=== PATIENT | female | born 1925 | race Caucasian/White ===

== ENCOUNTER 2016-12-16 12:34 | Observation (INO) | payer OTHER ==
--- NOTE | ~2016-12-16 | EKG ---
PATIENT: MARLON VALENZUELA UNIT #: [id number] Ventricular Rate: 59 BPM Atrial Rate: 59 BPM P-R Interval: 142 ms QRS Duration: 96 ms Q-T Interval: 398 ms QTC Calculation(Bezet): 394 ms P [place]: 99 degrees Calculated R [place]: -49 degrees Calculated T [place]: 51 degrees Diagnosis Line: Sinus bradycardia with sinus arrhythmia Diagnosis Line: Left anterior fascicular block Diagnosis Line: Moderate voltage criteria for LVH, may be normal Diagnosis Line: variant Diagnosis Line: Possible Lateral infarct , age undetermined Diagnosis Line: Abnormal ECG Diagnosis Line: When compared with ECG of 17-DEC-2016 10:14, Diagnosis Line: (unconfirmed) Diagnosis Line: No significant change was found Diagnosis Line: Confirmed by FAWN PERKINS MD ([id number]) on 12/19/2016 Diagnosis Line: 7:28:55 PM INTERPRETING MD: MADDIE PAIGE
--- NOTE | ~2016-12-16 | EKG ---
PATIENT: MARLON VALENZUELA UNIT #: [id number] Ventricular Rate: 144 BPM Atrial Rate: 288 BPM QRS Duration: 90 ms Q-T Interval: 244 ms QTC Calculation(Bezet): 377 ms P [place]: 254 degrees Calculated R [place]: -60 degrees Calculated T [place]: 122 degrees Diagnosis Line: Atrial flutter with 2:1 A-V conduction Diagnosis Line: Pulmonary disease pattern Diagnosis Line: Left anterior fascicular block Diagnosis Line: Left ventricular hypertrophy with repolarization Diagnosis Line: abnormality Diagnosis Line: Abnormal ECG Diagnosis Line: When compared with ECG of 18-MAY-2011 10:14, Diagnosis Line: Significant changes have occurred Diagnosis Line: Confirmed by FAWN PERKINS MD ([id number]) on 12/19/2016 Diagnosis Line: 7:17:26 PM INTERPRETING MD: MADDIE PAIGE
--- NOTE | ~2016-12-16 | HP ---
Unit #: [id number] #: [id number] Patient: MARLON VALENZUELA [id number] [address] [place], [place] [address] [id number] I MR#: [id number] NAME: MARLON VALENZUELA. ROOM: 329 Age: 89 Sex: F Admission Date: 12/16/2016 : 1925 Attending Physician: Atilio Herndon M.D. Primary Care Physician: Jarred Lay M.D. HISTORY AND PHYSICAL CHIEF COMPLAINT Diarrhea. HISTORY OF PRESENT ILLNESS The patient is an 89-year-old female with the history of coronary artery disease and congestive heart failure with a diastolic dysfunction, hypertension, hypothyroidism and GERD, brought to the emergency room complaining of the diarrhea. The patient stated the patient noticed diarrhea since , three times a day. However the diarrhea continued to worsen until today and the patient noticed black-colored stool this morning and that made her come to the emergency room. The patient was found to be guaiac positive in the emergency room and was found to be hypotensive with a blood pressure in the range of 88/42. The patient is being admitted for the above reasons. The patient's hemoglobin is 13.9. The patient denies any new recent antibiotics, dizziness, chest pain, palpitation, shortness of breath. PAST MEDICAL HISTORY History of coronary artery disease, congestive heart failure with the chronic diastolic dysfunction, hypertension, hypothyroidism and GERD. PAST SURGICAL HISTORY History of an ileostomy, status post subtotal colectomy with the Bella pouch. ALLERGIES No known drug allergies. HOME MEDICATIONS She is on levothyroxine, Norvasc, potassium, Lasix, pravastatin, multivitamins, iron tablet, aspirin, calcium and Claritin and Xanax. SOCIAL HISTORY Denies history of tobacco, alcohol or any illicit drug abuse. FAMILY HISTORY Reviewed and none. REVIEW OF SYMPTOMS Fourteen-point review of symptoms performed and only pertinent positive findings as described above, remaining are negative. PHYSICAL EXAMINATION Unit #: [id number] #: [id number] Patient: MARLON VALENZUELA GENERAL APPEARANCE: On examination the patient is sitting on a hair not in acute distress. VITAL SIGNS: Temperature 97.8, pulse 92, blood pressure 88/42, respiratory rate 18, sating 100% at room air. HEENT: Head atraumatic, normocephalic. Pupils equal, round and reacting to light and accommodation. Extraocular movements are intact. Dry mucous membranes. NECK: Supple. LUNGS: Clear to auscultation bilaterally. No rhonchi. No wheezing. HEART: Regular rate and rhythm. ABDOMEN: Soft, positive bowel sounds. EXTREMITIES: No cyanosis. No clubbing. NEUROLOGIC: Alert, awake, oriented. No gross focal motor deficit. DIAGNOSTIC STUDIES LABORATORY DATA: Glucose 119, BUN 27, creatinine 1.6, sodium 128, potassium 4.1, chloride 96, bicarb 20, calcium 8.5, total protein 7.1, albumin 3.9, AST 130, ALT 159, alkaline phosphatase 109 and INR is 1, WBC 10.6, hemoglobin 13.9, hemoglobin 40.7, platelets 387. CARDIOVASCULAR: EKG is not done. ASSESSMENT 1. Gastrointestinal bleed likely secondary to the upper gastrointestinal bleed. 2. Acute kidney injury. 3. Hyponatremia. PLAN 1. Plan to admit the patient to the observation. 2. Continue with the IV fluid 75 mL per hour for 10 more hours and then continue with the Protonix 40 mg IV b.i.d. 3. Will have GI for the upper endoscopy. 4. Repeat the labs again in the morning. 5. Will hold the aspirin and iron tablets. 6. Further recommendations will follow. Dictated by Shane Okeefe/joel TD: 12/16/2016 20:19 JOB #: [id number] Unit #: [id number] #: [id number] Patient: NICOLASMARLON Ferro HISTORY AND PHYSICAL X X HISTORY AND PHYSICAL
--- NOTE | ~2016-12-16 | CO ---
Unit #: [id number] #: [id number] Patient: MARLON VALENZUELA [id number] [facility] [address]. [place], [place] [address] [id number] I MR#: [id number] NAME: MARLON VALENZUELA. ROOM: 329 Age: 89 Sex: F Admission Date: 12/16/2016 : 1925 Attending Physician: Oh Kaur M.D. Primary Care Physician: Jarred Lay M.D. Consultation Date: 12/17/2016 CONSULTATION REPORT REASON FOR CONSULTATION Atrial flutter. HISTORY OF PRESENT ILLNESS The patient is an 89-year-old female who follows with Dr. Romero of [facility]. The patient has been seen at [facility] before in [address] Ana Brooke. Patient reports that she had a cardiac catheterization in 2005 at [facility]. Her LAD had 50% stenosis and she had some luminal irregularities to the circumflex and RCA. In 2005 she had an echo done that showed diastolic dysfunction with an EF of 55%. Additional past medical history incudes hypertension, hyperlipidemia, GERD, hypothyroidism, bladder cancer in 2008 and she is a nonsmoker. The patient reports that she has been having diarrhea since last . She denied any nausea, vomiting, fever, chills, chest pain or shortness of air. However, yesterday the patient noticed that her diarrhea seemed to turn "black." Again patient denied any other change in her symptoms. She denied any sick contacts. In the emergency department she was found to be heme positive. Her blood pressure was 88/42. The patient's hemoglobin upon admission was 13.9. Last night patient went into atrial flutter with a 2:1 conduction. The patient was sleeping at this time. She denied any nausea, vomiting, fever, chills, chest pain, shortness of air or dizziness. The hospitalist team was called and the patient did receive 10 mg of IV Cardizem per push and the patient converted back into sinus rhythm. Cardiology has been consulted for the atrial flutter. PAST MEDICAL HISTORY 1. Cardiac cath in 2015, 50% stenosis in the LAD and luminal irregularities in circumflex and RCA. 2. Echo 2016 shows EF of 55%. 3. Diastolic CHF. 4. Hypertension. 5. Hypothyroidism. 6. GERD. 7. Blader cancer in 2009. PAST SURGICAL HISTORY 1. Ileostomy. 2. Hysterectomy. 3. Subtotal colectomy with Bella pouch. Unit #: [id number] #: [id number] Patient: MARLON VALENZUELA ALLERGIES No known allergies. HOME MEDICATIONS 1. Levothyroxine 88 mcg p.o. daily. 2. Amlodipine and benazepril 5/10 mg one tab p.o. daily. 3. Potassium chloride 10 mEq p.o. daily. 4. Lasix 40 mg p.o. daily. 5. Pravastatin 20 mg p.o. q.h.s. 6. Multivitamin one tablet p.o. daily. 7. Iron supplement 65 mg p.o. daily. 8. Aspirin 81 mg p.o. daily. 9. Calcium plus vitamin D one tablet p.o. daily. 10. Claritin 10 mg p.o. daily. 11. Xanax 0.25 mg p.o. b.i.d. p.r.n. FAMILY HISTORY Patient endorses that her father had a CVA and that her mother had heart issues but is unable to give details. SOCIAL HISTORY The patient is a nonsmoker. She does not drink alcohol or use any illicit street substances. REVIEW OF SYSTEMS CONSTITUTIONAL: Denies fever or chills. HEENT: Denies sore throat, ear pain or runny nose. CARDIOVASCULAR: Denies chest pain, irregular heart rhythm or palpitations. CHEST: Denies shortness of breath or cough. No hemoptysis. GASTROINTESTINAL: Denies nausea, vomiting, chronic constipation. Endorses diarrhea and hematochezia. ENDOCRINE: Denies history of increased thirst or urination. No recent significant weight loss or gain. GENITOURINARY: Denies dysuria, frequency or hematuria. SKIN: Denies any rashes or lesions. HEMATOLOGIC: Denies any increase bleeding or bruising. MUSCULOSKELETAL: Denies any hot, swollen joints. No generalized muscle pain. NEUROLOGIC: Denies problems with speech or vision. No numbness, tingling or weakness in any extremity. Denies loss of bowel or bladder control. Denies dizziness. PHYSICAL EXAMINATION GENERAL: The patient is awake, alert, in no acute distress. VITAL SIGNS: Temperature 99, heart rate 120, respirations 18, blood pressure 125/63. She is 98%. HEENT: Head is atraumatic, normocephalic. Pupils equal, round, reactive. Extraocular movements are intact. No discharge from the ears or nares. NECK: Supple. Trachea is midline. Negative for JVD. Normal carotid upstrokes. CHEST: Lungs are clear to auscultation bilaterally. No wheezes, rales or rhonchi. CARDIVASCULAR: S1 and S2, regular rate and rhythm. No murmurs, gallops or rubs are appreciated. ABDOMEN: Abdomen is soft, nontender and nondistended. Bowel sounds are positive in all four quadrants. Unit #: [id number] #: [id number] Patient: MARLON VALENZUELA SKIN: Appears to be warm and dry, intact, without any unusual rashes or lesions. EXTREMITIES: No clubbing, edema or cyanosis. NEUROLOGIC: She is alert and oriented x4. She is pleasant and conversant. Cranial II through XII appear to be intact. DIAGNOSTIC STUDIES CARDIOVASCULAR: EKG from December 16, 2016 shows atrial flutter with 2:1 conduction. EKG from December 17 at 10:14 a.m. shows normal sinus rhythm. LABORATORY RESULTS: Whiter blood cells 10.6, hemoglobin 13.9, hematocrit 40.7, platelets 387, sodium 128, potassium 4.1, chloride 96, CO2 20, BUN 17, creatinine 1.6, glucose 119, INR is 0. ASSESSMENT 1. Acute lower gastrointestinal bleed with positive heme stool. 2. Paroxysmal atrial fibrillation/flutter, new onset. The patient has a CHADS-VASc score of 4. 3. Chronic diastolic congestive heart failure with an ejection fraction of 55% in 2005. 4. Hypertension. 5. Hyperlipidemia. 6. Gastroesophageal reflux disease. 7. Hypothyroidism. 8. Transaminitis. PLAN 1. Will attempt to obtain the cardiac catheterization technician report from [facility] from back in 2005. 2. Will trend the patient's cardiac enzymes and check a TSH. 3. Will check a BMP, mag, EKG in the morning. 4. Will plan to do a 2D echocardiogram. 5. The patient will be started on Lopressor 25 mg p.o. b.i.d. to hold for systolic blood pressure below 100 and heart rate below 55. 6. Will also add a lipid panel to the patient's labs and check an EKG in the morning. 7. The plan is for the patient to have a GI evaluation. 8. The patient will need anticoagulation once cleared by GI. Dictated by... Sarina Mitchell A.P.R.N. for Ana Brooke M.D. AM/cf TD: 12/17/2016 14:34 JOB #: [id number] Unit #: [id number] #: [id number] Patient: MARLON VALENZUELA CONSULTATION REPORT X Sarina Mitchell APRN X CONSULTATION REPORT
--- NOTE | ~2016-12-16 | DS ---
Unit #: [id number] #: [id number] Patient: MARLON VALENZUELA [id number] [place] [id number] [facility]. [place], [place] [address] [id number] I MR#: [id number] NAME: MARLON VALENZUELA. ROOM: 329 Age: 89 Sex: F Admission Date: 12/16/2016 : 1925 Discharge Date: 12/19/2016 Attending Physician: Jo Hodges M.D. Primary Care Physician: Jarred Lay M.D. DISCHARGE SUMMARY DIAGNOSIS ON ADMISSION GI bleeding. DIAGNOSES ON DISCHARGE 1. Gastrointestinal bleeding, resolved. 2. Acute kidney injury, improved. 3. Hyponatremia, improved. 4. Coronary artery disease. 5. Chronic diastolic heart dysfunction. 6. Hypothyroidism. 7. Hypertension. 8. Gastroesophageal reflux disease. 9. Paroxysmal atrial fibrillation. CONSULTATIONS 1. Dr. Presley in cardiac consultation. 2. Dr. Marie in GI consultation. PROCEDURES DONE The patient had an EGD done, which revealed small hiatal hernia with nonobstructing esophageal ring, mild gastritis. There was no clear source of bleeding present. DIAGNOSTIC STUDIES CARDIOVASCULAR: The patient had a two-D echocardiogram done, which revealed ejection fraction of 55%. There was mild aortic stenosis present and [id number] tricuspid regurgitation present. LABS: The patient's stool for C. diff. was negative. The patient's AST was 31, ALT 58. TSH was 3.86. The patient's creatinine was 1, sodium 138, potassium 3.9. WBC is 9.8, hemoglobin 10.7, platelet count 269. HOSPITAL COURSE This 89-year-old patient presented to [facility] with diarrhea and weakness. Details are as per admission H and P. Possible GI bleeding. The patient was seen by Dr. Marie in consultation. He performed EGD, which did not reveal any source of bleeding. Paroxysmal atrial fibrillation. The patient had atrial fibrillation, but she has converted to sinus rhythm. The patient was seen by cardiology in consultation who had started the patient on Eliquis if okay with cardiology. Unit #: [id number] #: [id number] Patient: MARLON VALENZUELA Diarrhea. The patient's stool for C. diff. was negative, and the patient stated that she had a formed BM. PHYSICAL EXAMINATION GENERAL: Today, the patient is comfortable and is not in any acute distress. Is very anxious to go home. VITAL SIGNS: Vital signs reveal temperature of 97.9, pulse 62 per minute, respiratory rate 16 per minute, and blood pressure is 131/59. HEENT: Examination revealed no conjunctival congestion. Sclera is nonicteric. NECK: Neck is supple. Trachea is central. RESPIRATORY: Examination revealed breath sounds equal bilaterally. There are no wheezes or crackles. HEART: Regular rate and rhythm. S1, S2. ABDOMEN: Abdomen is soft, nontender. Bowel sounds are present in all 4 quadrants. CONDITION Stable. ACTIVITIES As tolerated. DISCHARGE MEDICATIONS 1. Tylenol 650 mg p.o. q.6 hours p.r.n. 2. Eliquis 2.5 mg p.o. b.i.d. 3. Claritin 10 mg p.o. daily p.r.n. 4. Xanax 0.25 mg p.o. b.i.d. p.r.n., which is the patient's home medication. 5. Lopressor 25 mg p.o. b.i.d. as per cardiology. 6. Lasix as per cardiology. 7. Pravachol 20 mg p.o. daily. 8. Iron sulfate 65 mg p.o. daily. 9. Multivitamin 1 tablet p.o. daily. 10. Protonix 40 mg p.o. daily. 11. Calcium with vitamin D 500 mg p.o. daily. 12. Synthroid 88 mcg p.o. daily. 13. Potassium is as per cardiology. DISPOSITION The patient will be discharged home after seen by cardiology and GI. FOLLOW-UP The patient is advised to follow up with primary care physician in 1 week and have a CBC and BMP done. PLAN The plan was discussed in detail with the patient and daughter, and they showed complete understanding. They were advised to call primary care physician if her GI bleeding recurs or if she does not feel better or if her condition changes. They are also aware of the fact that Eliquis increases the risk of bleeding, and they need to monitor the patient closely. NOTE: Total time spent on this discharge is 35 minutes. Unit #: [id number] #: [id number] Patient: MARLON VALENZUELA Dictated by... Shane Hays TD: 12/19/2016 16:03 JOB #: [id number] DISCHARGE SUMMARY X Jo Hodges MD X DISCHARGE SUMMARY
--- NOTE | ~2016-12-16 | OR ---
Unit #: [id number] #: [id number] Patient: MARLON VALENZUELA [id number] [address] [address] [id number] I MR#: [id number] NAME: MARLON VALENZUELA. ROOM: [facility] Date of Procedure: 12/18/2016 Admission Date: 12/16/2016 Surgeon: Tio Marie M.D. : 1925 Attending Physician: Jo Hodges M.D. Primary Care Physician: Jarred Lay M.D. OPERATIVE REPORT PROCEDURE PERFORMED Esophagogastroduodenoscopy with biopsy. INDICATIONS FOR PROCEDURE The patient presented with melenic stools, undergoing evaluation with upper endoscopy. Hemoglobin stable. MEDICATIONS Monitored anesthesia. POSTOPERATIVE FINDINGS 1. Small hiatal hernia along with nonobstructing esophageal ring. 2. Mild gastritis. Biopsies taken. 3. Normal duodenum and distal duodenum. 4. No clear source or stigmata of recent bleeding was seen. PLAN Watch for any further bleeding. Watch H and H. DESCRIPTION OF PROCEDURE The patient was explained of the procedure, risks, and benefits along with risks and benefits of anesthesia. She was brought to the endoscopy room. Propofol anesthesia was given. Bite block was placed. The scope was passed down the mouth into the esophagus, stomach, duodenum, and distal duodenum. Findings as described. Biopsies taken. Gently, the scope was pulled out. She tolerated it well. Dictated by... Shane Odell/ana cristina TD: 12/18/2016 22:31 JOB #: [id number] Ana Brooke M.D. Unit #: [id number] #: [id number] Patient: MARLON VALENZUELA OPERATIVE REPORT X Tio Marie MD X PROCEDURE OPERATIVE NOTE
--- NOTE | ~2016-12-16 | EKG ---
PATIENT: MARLON VALENZUELA UNIT #: [id number] Ventricular Rate: 74 BPM Atrial Rate: 74 BPM P-R Interval: 140 ms QRS Duration: 96 ms Q-T Interval: 378 ms QTC Calculation(Bezet): 419 ms P [place]: 49 degrees Calculated R [place]: -53 degrees Calculated T [place]: 55 degrees Diagnosis Line: Normal sinus rhythm Diagnosis Line: Left anterior fascicular block Diagnosis Line: Voltage criteria for left ventricular hypertrophy Diagnosis Line: Abnormal ECG Diagnosis Line: When compared with ECG of 16-DEC-2016 23:58, Diagnosis Line: (unconfirmed) Diagnosis Line: Sinus rhythm has replaced Atrial flutter Diagnosis Line: Vent. rate has decreased BY 70 BPM Diagnosis Line: ST less depressed in Inferior leads Diagnosis Line: ST no longer depressed in Anterolateral leads Diagnosis Line: T wave inversion no longer evident in Lateral Diagnosis Line: leads Diagnosis Line: Confirmed by FAWN PERKINS MD ([id number]) on 12/19/2016 Diagnosis Line: 7:23:29 PM INTERPRETING MD: MADDIE PAIGE
[2016-12-16 11:08] LABS: BASOPHIL# 0.1 X10e3 (0-0.3); BASOPHIL% 0.6 % (0-2.5); EOSINOPHIL% 0.1 % (0.0-7.0); HEMATOCRIT 40.7 % (35.0-45.0); HEMOGLOBIN 13.9 gm/dL (12.0-16.0); LYMPHOCYTE# 2.3 X10e3 (1.0-3.5); LYMPHOCYTE% 21.7 % (17.0-45.0); MEAN CELL VOLUME 89.9 FL (83-96); MEAN CORPUSCULAR HEMOGLOBIN 30.7 PG (28-34); MEAN CORPUSCULAR HGB CONC 34.1 g/dL (30-36); MEAN PLATELET VOLUME 8.7 FL (6.5-11.5); MONOCYTE# 1.4 X10e3 (0-1.0); MONOCYTE% 12.9 % (3.0-12.0); NEUTROPHIL# 6.8 X10e3 (1.5-7.1); NEUTROPHIL% 64.7 % (40-75); PLATELET COUNT 387 X10e3 (140-420); RED BLOOD COUNT 4.53 X10e (3.90-5.30); RED CELL DISTRIBUTION WIDTH 12.6 % (11.0-15.5); WHITE BLOOD COUNT 10.6 X10e3 (4.0-10.5)
[2016-12-16 11:09] LABS: DIFF IND NO
[2016-12-16 11:24] LABS: PARTIAL THROMBOPLASTIN TIME 27.5 SECONDS (23.5-31.3)
[2016-12-16 11:36] LABS: ALBUMIN SERUM 3.9 g/dL (3.5-5.0); BILIRUBIN, DIRECT 0.1 mg/dL (0.0-0.2); BILIRUBIN,INDIRECT 0.7 mg/dL (0.0-0.9); BILIRUBIN,TOTAL 0.8 mg/dL (0.2-2.0); BUN/CREATININE RATIO 16.87; CALCIUM SERUM 8.5 mg/dL (8.4-10.2); CREATININE SERUM 1.6 mg/dL (0.6-1.4); GLOM FILT RATE Estimated 32.3 mL/min (>60); POTASSIUM 4.1 mmol/L (3.5-5.1); PROTEIN TOTAL SERUM 7.1 g/dL (6.0-8.3)
[~2016-12-16 12:34] MED LIST: ALPRAZOLAM PO; ASPIRIN PO; ASPIRIN81 M1 PO; CALCIUM500 MG PO; CENTRUM PO; CLARITIN10 MG PO; CRESTOR PO; FERRO-TIME325 MG PO; FOSAMAX PO; KCL PO; LASIX PO; LOPID600 MG PO; LORTAB 7.5-5001 TAB PO; LOTREL 5/10 MG1 CAP PO; NORVASC PO; PRILOSEC PO; PYRIDIUM100 MG PO; SIMVASTATIN40 MG PO; SYNTHROID PO; VITAMIN D 4001 UDTAB PO
[2016-12-16] MEDS ORDERED: LEVOTHYROXINE88 MCG PO (13:13)
[2016-12-16] MEDS ORDERED: AMLODIPINE-BENA1 CA1 PO (13:15)
[2016-12-16] MEDS ORDERED: LASIX PO (13:15)
[2016-12-16] MEDS ORDERED: POTASSIUM CHLO10 ME1 PO (13:15)
[2016-12-16] MEDS ORDERED: PRAVASTATIN SOD20 MG PO (13:15)
[2016-12-16] MEDS ORDERED: MULTIVITAMINS1 EAC2 PO (13:16)
[2016-12-16] MEDS ORDERED: CALCIUM 600 + D1 TAB PO (13:17)
[2016-12-16] MEDS ORDERED: IRON TABLETS1 TAB PO (13:17)
[2016-12-16] MEDS ORDERED: ASPIRIN81 MG PO (13:17)
[2016-12-16] MEDS ORDERED: CLARITIN10 M2 PO (13:18)
[2016-12-16] MEDS ORDERED: XANAX PO (13:19)
[2016-12-17 07:50] LABS: HEMOGLOBIN 13.3 gm/dL (12.0-16.0); MEAN CELL VOLUME 89.4 FL (83-96); MEAN CORPUSCULAR HEMOGLOBIN 30.4 PG (28-34); MEAN PLATELET VOLUME 8.3 FL (6.5-11.5); RED BLOOD COUNT 4.37 X10e (3.90-5.30); RED CELL DISTRIBUTION WIDTH 12.7 % (11.0-15.5); WHITE BLOOD COUNT 9.1 X10e3 (4.0-10.5)
[2016-12-17 08:12] LABS: BUN/CREATININE RATIO 23.33; CALCIUM SERUM 8.1 mg/dL (8.4-10.2); CREATININE SERUM 1.2 mg/dL (0.6-1.4); POTASSIUM 4.1 mmol/L (3.5-5.1)
[2016-12-17 10:50] LABS: %MB 4.7 % (0.0-4.0); MB 3.4 ng/ml
[2016-12-17 14:50] LABS: %MB 7.6 % (0.0-4.0); MB 5.5 ng/ml
[2016-12-18 09:20] LABS: BLOOD UREA NITROGEN 19 mg/dL (9-23); BUN/CREATININE RATIO 21.11; CARBON DIOXIDE 19 mmol/L (22-31); CHLORIDE 111 mmol/L (100-111); CHOLESTEROL 118 mg/dL (0-200); CREATININE SERUM 0.9 mg/dL (0.6-1.4); GLOM FILT RATE Estimated ABOVE60 mL/min (>60); GLUCOSE FASTING 85 mg/dL (70-110); HDL CHOLESTEROL 39 mg/dL (35-95); LDL CHOLESTEROL 42 mg/dL (-130); LDL/HDL RATIO 1 RATIO (0-4); MAGNESIUM 1.9 mg/dL (1.6-3.0); POTASSIUM 4.1 mmol/L (3.5-5.1); SODIUM 134 mmol/L (135-145); TRIGLYCERIDES 185 mg/dL (10-160)
[2016-12-18 10:21] LABS: ALBUMIN SERUM 2.9 g/dL (3.5-5.0); BILIRUBIN, DIRECT 0.1 mg/dL (0.0-0.2); BILIRUBIN,INDIRECT 0.3 mg/dL (0.0-0.9); BILIRUBIN,TOTAL 0.4 mg/dL (0.2-2.0); PROTEIN TOTAL SERUM 5.2 g/dL (6.0-8.3)
[2016-12-19 07:23] LABS: HEMATOCRIT 32.3 % (35.0-45.0); MEAN CELL VOLUME 90.7 FL (83-96); MEAN CORPUSCULAR HGB CONC 33.1 g/dL (30-36); MEAN PLATELET VOLUME 9.5 FL (6.5-11.5); RED BLOOD COUNT 3.56 X10e (3.90-5.30); RED CELL DISTRIBUTION WIDTH 12.6 % (11.0-15.5); WHITE BLOOD COUNT 9.8 X10e3 (4.0-10.5)
[2016-12-19 07:25] LABS: HEMOGLOBIN 10.7 gm/dL (12.0-16.0)
[2016-12-19 08:16] LABS: ALBUMIN SERUM 2.8 g/dL (3.5-5.0); BILIRUBIN,TOTAL 0.5 mg/dL (0.2-2.0); CALCIUM SERUM 8.2 mg/dL (8.4-10.2); GLOM FILT RATE Estimated 55.5 mL/min (>60); POTASSIUM 3.9 mmol/L (3.5-5.1)
[2016-12-19] MEDS ORDERED: PROTONIX PO (16:08)
[2016-12-19] MEDS ORDERED: ACETAMINOPHEN650 M3 PO (16:09)
[2016-12-19] MEDS ORDERED: ELIQUIS2.5 MG PO (16:10)
[2016-12-19] MEDS ORDERED: METOPROLOL TAR25 MG PO (16:11)
== END 2016-12-19 17:05 | disposition home or self-care (01) ==
LOC: CED 12:34 → CEDOF 14:07 → C3A PCU 15:53
PROVIDERS: Emergency Medicine; Family Medicine; Internal Medicine; Internal Medicine Cardiovascular Disease
DX: K29.50 Unspecified chronic gastritis without bleeding (principal); K22.2 Esophageal obstruction; K44.9 Diaphragmatic hernia without obstruction or gangrene; I51.7 Cardiomegaly; N17.9 Acute kidney failure, unspecified; I08.2 Rheumatic disorders of both aortic and tricuspid valves; D64.9 Anemia, unspecified; E87.1 Hypo-osmolality and hyponatremia; I25.10 Atherosclerotic heart disease of native coronary artery without angina pectoris; I11.0 Hypertensive heart disease with heart failure; I50.32 Chronic diastolic (congestive) heart failure; E78.5 Hyperlipidemia, unspecified; E03.9 Hypothyroidism, unspecified; K21.9 Gastro-esophageal reflux disease without esophagitis; Z79.899 Other long term (current) drug therapy; I48.0 Paroxysmal atrial fibrillation; Z79.82 Long term (current) use of aspirin; Z85.51 Personal history of malignant neoplasm of bladder; Z90.710 Acquired absence of both cervix and uterus; Z82.3 Family history of stroke
CPT/HCPCS: 36415; 80048; 80053; 80061; 80076; 82550; 82553; 83735; 84443; 84484; 85025; 85027; 85610; 85730; 86850; 86900; 86901; 87045; 87427; 87493; 87899; 88305; 88312; 93005; 93306; 96374; 96375; 96376; 99285; C9113; G0378; J2270